=== PATIENT | male | born 2000 | race Two or more races ===

== ENCOUNTER 2019-12-17 20:20 | Emergency (ER) | payer SELFPAY ==
[2019-12-17] MEDS ORDERED: Ibuprofen 200 MG TAB ONE (20:37)
--- NOTE | 2019-12-17 20:47 | RAD ---
LEFT KNEE FOUR VIEW: 12/17/19 HISTORY: Injury. Pain. COMPARISON: None. FINDINGS: No acute fracture or malalignment. No significant joint effusion. Soft tissues are unremarkable. IMPRESSION: No acute osseous abnormality. POS: HOME
== END 2019-12-17 21:49 | disposition home or self-care (01) ==
LOC: ERS 20:20 → MERGE 20:20 → ERS 21:49
DX: S83.92XA Sprain of unspecified site of left knee, initial encounter (principal); V00.131A Fall from skateboard, initial encounter; Y93.51 Activity, roller skating (inline) and skateboarding